=== PATIENT | male | born 1975 | race Caucasian/White ===

== ENCOUNTER 2019-07-10 08:59 | Outpatient (CLI) | payer MEDICAID, SELFPAY ==
--- NOTE | 2019-07-10 15:30 | DI.US_ITS ---
SYMPTOMS/DIAGNOSIS: RIGHT SCROTAL PAIN, ? TORSION, N50.82 TESTICULAR ULTRASOUND: The right testicle measures 5.1 x 2.2 x 3.1 cm, the left testicle measures 3.3 x 2.2 x 3.4 cm. The testicles are homogeneous with normal and symmetric blood flow. No evidence of torsion is seen. No intratesticular mass is present. The right epididymis is unremarkable, as is the left epididymis. IMPRESSION: No evidence of testicular torsion or intratesticular mass.
== END 2019-07-10 09:19 ==
PROVIDERS: PCP Family Medicine; Visit Provider Nurse Practitioner Gerontology
DX: N50.82 Scrotal pain (principal)
CPT/HCPCS: 76870